=== PATIENT | male | born 1980 | race African-American/Black ===

== ENCOUNTER 2017-09-16 10:54 | Emergency (ER) | payer OTHER ==
[~2017-09-16] VITALS: Ht 177.8 cm; Wt 74.8 kg
[~2017-09-16 10:54] MED LIST: ADVAIR 100-501 EACH INH; ADVAIR 250-501 EACH INH; ALBUTEROL INHAL17 GM IH; CLARITIN10 M2 PO; COMBIVENT INH; COMBIVENT RESPIM4 GM IH; FLONASE 0.05%50 MCG NASAL; KEFLEX500 MG PO; NORCO 5-325 TA1 EACH PO; PREDNISONE 20 M20 M1 PO; VENTOLIN HFA INH8 GM IH
[2017-09-16] MEDS ORDERED: ALBUTEROL2.5 MG/31 INH (11:20)
[2017-09-16] MEDS ORDERED: MEDROLDOSEPACK PO (11:20)
[2017-09-16] MEDS ORDERED: VENTOLIN HFA 1818 GM INH (11:20)
[2017-09-16 11:55] VITALS: BP 118/60
[2018-01-20] MEDS ORDERED: PROVENTIL HFA6.7 G1 INH (22:07)
[2018-01-20] MEDS ORDERED: PREDNISONE50 MG PO (22:07)
[2018-03-29] MEDS ORDERED: VENTOLIN HFA 1818 GM INH (20:55)
[2018-03-29] MEDS ORDERED: ALLEGRA-D 12 H1 EAC1 PO (21:04)
[2018-03-29] MEDS ORDERED: PREDNISONE 20 M20 MG PO (21:04)
[2018-03-29] MEDS ORDERED: COMBIVENT RESPIM4 GM INH (21:04)
== END 2017-09-16 11:55 | disposition home or self-care (01) ==
LOC: ER 10:54
DX: J45.901 Unspecified asthma with (acute) exacerbation (principal); Z87.891 Personal history of nicotine dependence

== ENCOUNTER 2017-10-22 17:03 | Inpatient (IN) | payer OTHER ==
[2017-10-22] VITALS (13 sets, daily range): BP systolic 124–146; BP diastolic 65–91
[~2017-10-22] VITALS: Ht 177.8 cm; Wt 70.8 kg
--- NOTE | ~2017-10-22 | HC ---
[facility] [place] [address] CONSULTATION Name: SILVIA MATTHEW JR Room #: 464-P ADM IN M.R.#: [id number] Admission: 10/22/17 Attend Phys: Lopez Lawson MD Discharge: Date of : 82 Report #: [id number] THIS REPORT FOR: //name// CC: FAM physician/PCP Lopez Lawson PULMONARY CONSULTATION PRIMARY PHYSICIAN: Dr. Char Linda. REFERRAL PHYSICIAN: Lopez Lawson MD REASON FOR REFERRAL: Exacerbation of asthma. HISTORY OF PRESENT ILLNESS: The patient is a 37-year-old -[place] male who presents to the Emergency Room with respiratory distress. A pulmonary consultation was requested. The patient states he has been diagnosed with asthma most of his life. He uses albuterol mostly. About a month ago, he picked up smoking cigarettes. He noticed that ever since then he has been progressively short of breath. Recently, he also ran out of his inhalers. He does not see his primary care on a regular basis. His dyspnea started about 2-3 days ago and has been progressively worse. In the ER, the patient was found to be in severe respiratory distress. He was given steroids, bronchodilators along with magnesium IV. He was then placed on BiPAP. Currently, he feels better. He does get short of breath off the BiPAP. Otherwise, he denies any febrile illness or throat, productive cough, night sweats or chills. PAST MEDICAL HISTORY: Notable for asthma, lifelong, seasonal allergies. ALLERGIES: None to medications. HE IS ALLERGIC TO CATS, GRASS, POLLEN. HOME MEDICATIONS: Include nebulized albuterol. He was given Medrol Dosepak. He was also given Advair, Combivent scripts in the ER. FAMILY HISTORY: Noncontributory. SOCIAL HISTORY: Recently picked up smoking about a month ago. Denies any recreational drug use or other illicit drug use. Denies any alcohol use. [facility] [address] [place] [address] CONSULTATION Name: SILVIA MATTHEW Room #: 464-P [facility] IN [facility].#: [id number] Admission: 10/22/17 Attend Phys: Lopez Lawson MD Discharge: Date of : 82 Report #: [id number] REVIEW OF SYSTEMS: As mentioned above, otherwise 10-point system review negative. PHYSICAL EXAMINATION: GENERAL: He is awake, alert, in mild respiratory distress. VITAL SIGNS: Temperature is 98 degrees Fahrenheit, pulse is 110, respiratory rate is 20, blood pressure 120/80 mmHg, saturation 100%. HEENT: Normocephalic, atraumatic. NECK: Supple, without lymphadenopathy or thyromegaly. CHEST: Breath sounds are decreased bilaterally with moderate expiratory wheezes. CARDIOVASCULAR: Normal S1, S2. There are no murmurs or gallop. There is no JVD. There is no carotid bruit. Pulses are 2+/4+ bilaterally. ABDOMEN: Soft, nontender, no organomegaly or masses felt. GENITOURINARY: Deferred. RECTAL: Deferred. EXTREMITIES: There is no edema, cyanosis or clubbing. LABORATORY DATA: Chest x-ray is clear. CT chest was reviewed, it shows an ill-defined opacity seen in the right upper lobe along with superior basal segment of the left lower lobe. Influenza A and B swab is negative. Electrolytes are normal except for creatinine of 1.2. CBC is normal, eosinophil count is mildly elevated at 3.6%. Arterial blood gas on admission revealed pH 7.35, pCO2 of 50, pO2 72 on 4 liters of O2. IMPRESSION: 1. Exacerbation of asthma, severe. 2. Acute hypercapnic hypoxic respiratory failure due to above. 3. Tobacco abuse. 4. Acute kidney injury. 5. Seasonal allergies. RECOMMENDATION: Agree with current treatment plans including corticosteroids, bronchodilators, noninvasive positive pressure ventilation. I strongly recommend the patient regarding smoking cessation. Once stable, the patient should be on maintenance asthma medication such as inhaled corticosteroids and bronchodilators. He should also be treated for his seasonal allergies with an antihistamine or inhaled nasal steroid spray. Also, encouraged medical compliance treatment of his asthma as complications of [address] [address] CONSULTATION Name: SILVIA MATTHEW Room #: 464-P [facility] IN M.R.#: [id number] Admission: 10/22/17 Attend Phys: Lopez Lawson MD Discharge: Date of : 82 Report #: [id number] untreated asthma can be severe including . The patient voices understanding. <ELECTRONICALLY SIGNED> By: Mauricio Novoa MD 10/24/17 1214 [id number] Mauricio Novoa MD /nt
[~2017-10-22 17:03] MED LIST changes: +ALBUTEROL2.5 MG/31 INH; +MEDROLDOSEPACK PO; +VENTOLIN HFA 1818 GM INH
[2017-10-22 17:32] LABS: BE(vivo) 1.1 mmol/L (-2 to +3); HCO3 27.6 mmol/L (22.0-26.0); PCO2 50.5 mmHg (35.0-45.0); PO2 72.9 mmHg (80.0-100.0); pH 7.356 (7.360-7.450); sO2 93.9 % (92.0-98.0)
[2017-10-22 17:34] LABS: ABSOLUTE NEUTROPHILS 4.2 thou/uL (1.4-8.2); BASOPHILS 0.9 % (0.0-2.0); EOSINOPHILS 3.6 % (0.0-3.0); HEMATOCRIT 48.6 % (42.0-52.0); HEMOGLOBIN 16.2 gm/dL (14.0-18.0); LYMPHOCYTES 29.5 % (24.0-44.0); MCH 29.3 pg (26.0-34.0); MCHC 33.4 g/dL (28.0-37.0); MCV 87.6 fL (80.0-100.0); MONOCYTES 10.2 % (1.0-8.0); PLATELET COUNT 248 thou/uL (150-400); POLYS 55.8 % (36.0-66.0); RBC 5.55 mil/uL (4.50-6.00); RDW 13.6 % (10.5-14.5); WBC 7.5 thou/uL (4.0-11.0)
[2017-10-22 17:42] LABS: ANION GAP 8 mmol/L (7-16); BUN 18 mg/dL (7-18); CALCIUM 9.7 mg/dL (8.5-10.1); CHLORIDE 104 mmol/L (98-107); CO2 31 mmol/L (21-32); CREATININE 1.2 mg/dL (0.7-1.3); GLUCOSE 92 mg/dL (74-106); POTASSIUM 3.6 mmol/L (3.5-5.1); SODIUM 143 mmol/L (136-145)
[2017-10-22 17:51] LABS: MAGNESIUM 1.8 mg/dL (1.8-2.4); TROPONIN-I < 0.04 ng/mL (<0.06)
[2017-10-22] MEDS ORDERED: PROAIR HFA8.5 GM (21:09)
[2017-10-22] MEDS ORDERED: MEDROL4 M1 PO (21:11)
[2017-10-22] MEDS ORDERED: ALBUTEROL2.5 MG/31 INH (21:12)
[2017-10-23] VITALS (55 sets, daily range): BP systolic 97–173; BP diastolic 66–104
[2017-10-23 05:23] LABS: HEMATOCRIT 45.1 % (42.0-52.0); HEMOGLOBIN 14.9 gm/dL (14.0-18.0); MCH 29.1 pg (26.0-34.0); MCHC 32.9 g/dL (28.0-37.0); MCV 88.3 fL (80.0-100.0); RBC 5.11 mil/uL (4.50-6.00); RDW 13.9 % (10.5-14.5); WBC 5.6 thou/uL (4.0-11.0)
[2017-10-23 05:34] LABS: CALCIUM 9.4 mg/dL (8.5-10.1); CREATININE 1.2 mg/dL (0.7-1.3); MAGNESIUM 1.9 mg/dL (1.8-2.4)
[2017-10-23 05:38] LABS: POTASSIUM 4.9 mmol/L (3.5-5.1)
[2017-10-23 12:18] LABS: BE(vivo) 2.1 mmol/L (-2 to +3); HCO3 26.9 mmol/L (22.0-26.0); PCO2 42.5 mmHg (35.0-45.0); PO2 140.3 mmHg (80.0-100.0); pH 7.419 (7.360-7.450); sO2 98.8 % (92.0-98.0)
[2017-10-24] VITALS (13 sets, daily range): BP systolic 104–145; BP diastolic 65–83
[2017-10-24 05:19] LABS: CALCIUM 9.3 mg/dL (8.5-10.1); POTASSIUM 4.8 mmol/L (3.5-5.1)
[2017-10-24 05:22] LABS: HEMATOCRIT 44.4 % (42.0-52.0); HEMOGLOBIN 14.7 gm/dL (14.0-18.0); MCH 29.1 pg (26.0-34.0); MCV 88.1 fL (80.0-100.0); RBC 5.04 mil/uL (4.50-6.00); RDW 13.8 % (10.5-14.5); WBC 13.9 thou/uL (4.0-11.0)
[2017-10-25 04:48] VITALS: BP 124/80
[2017-10-25 05:29] LABS: HEMATOCRIT 41.6 % (42.0-52.0); HEMOGLOBIN 13.5 gm/dL (14.0-18.0); MCH 28.8 pg (26.0-34.0); MCHC 32.4 g/dL (28.0-37.0); RBC 4.68 mil/uL (4.50-6.00); RDW 13.8 % (10.5-14.5); WBC 16.3 thou/uL (4.0-11.0)
[2017-10-25 05:42] LABS: CALCIUM 9.1 mg/dL (8.5-10.1); MAGNESIUM 2.1 mg/dL (1.8-2.4)
[2017-10-25 05:44] LABS: POTASSIUM 4.6 mmol/L (3.5-5.1)
[2017-10-25 07:12] VITALS: BP 116/76
[2017-10-25 15:41] VITALS: BP 133/82
[2017-10-25 19:10] VITALS: BP 128/84
[2017-10-26 03:51] VITALS: BP 125/74
[2017-10-26 05:26] LABS: HEMATOCRIT 41.6 % (42.0-52.0); HEMOGLOBIN 13.5 gm/dL (14.0-18.0); MCH 28.9 pg (26.0-34.0); MCHC 32.5 g/dL (28.0-37.0); MCV 88.8 fL (80.0-100.0); RBC 4.68 mil/uL (4.50-6.00); RDW 13.8 % (10.5-14.5); WBC 14.1 thou/uL (4.0-11.0)
[2017-10-26 05:40] LABS: CALCIUM 8.8 mg/dL (8.5-10.1); CREATININE 1.1 mg/dL (0.7-1.3); MAGNESIUM 1.9 mg/dL (1.8-2.4); POTASSIUM 4.1 mmol/L (3.5-5.1)
[2017-10-26 07:50] VITALS: BP 124/82
[2017-10-26] MEDS ORDERED: DUONEB 2.5-0.5 M3 ML INH (10:41)
[2017-10-26] MEDS ORDERED: CIPRO500 MG PO (10:41)
[2017-10-26] MEDS ORDERED: SINGULAIR 10 MG10 M1 PO (10:41)
[2017-10-26] MEDS ORDERED: NEBULIZER (10:41)
[2017-10-26] MEDS ORDERED: MUCINEX600 MG PO (10:41)
[2017-10-26] MEDS ORDERED: PREDNISONE 10 M10 MG PO (10:46)
[2017-10-26 10:52] VITALS: BP 124/82
[2017-10-26 11:12] VITALS: BP 124/82
== END 2017-10-26 13:30 | disposition home or self-care (01) | DRG 871 ==
LOC: ER 17:03 → ICU 18:32 → EROBS 18:32 → ICU 20:45 → 4W 10-24 11:37
PROVIDERS: Internal Medicine; Internal Medicine Pulmonary Disease; Nurse Practitioner Family
PROC: 5A09457 Assistance with Respiratory Ventilation, 24-96 Consecutive Hours, Continuous Positive Airway Pressure (ICD-10-PCS; principal; 2017-10-22)
DX: A41.9 Sepsis, unspecified organism (principal); J18.9 Pneumonia, unspecified organism; J96.02 Acute respiratory failure with hypercapnia; J96.01 Acute respiratory failure with hypoxia; N17.9 Acute kidney failure, unspecified; J45.51 Severe persistent asthma with (acute) exacerbation; J30.2 Other seasonal allergic rhinitis; F17.210 Nicotine dependence, cigarettes, uncomplicated; Z79.899 Other long term (current) drug therapy; Z91.048 Other nonmedicinal substance allergy status; Z71.6 Tobacco abuse counseling
CPT/HCPCS: 10045; 10203

== ENCOUNTER 2018-02-22 21:18 | Emergency (ER) | payer OTHER ==
[~2018-02-22] VITALS: Ht 177.8 cm; Wt 74.8 kg
[~2018-02-22 21:18] MED LIST changes: +CIPRO500 MG PO; +DUONEB 2.5-0.5 M3 ML INH; +MEDROL4 M1 PO; +MUCINEX600 MG PO; +NEBULIZER; +PREDNISONE 10 M10 MG PO; +PREDNISONE50 MG PO; +PROAIR HFA8.5 GM; +PROVENTIL HFA6.7 G1 INH; +SINGULAIR 10 MG10 M1 PO
[2018-02-22] MEDS ORDERED: VENTOLIN HFA 1818 GM INH (21:50)
[2018-02-22] MEDS ORDERED: PREDNISONE 20 M20 MG PO (21:50)
== END 2018-02-22 22:15 | disposition home or self-care (01) ==
LOC: ER 21:18
DX: J45.901 Unspecified asthma with (acute) exacerbation (principal); B36.0 Pityriasis versicolor; L21.9 Seborrheic dermatitis, unspecified; Z87.891 Personal history of nicotine dependence; Z91.048 Other nonmedicinal substance allergy status

== ENCOUNTER 2018-06-07 21:08 | Emergency (ER) | payer OTHER ==
[~2018-06-07] VITALS: Ht 175.3 cm; Wt 74.8 kg
[~2018-06-07 21:08] MED LIST changes: +ALLEGRA-D 12 H1 EAC1 PO; +COMBIVENT RESPIM4 GM INH; +PREDNISONE 20 M20 MG PO
[2018-06-07] MEDS ORDERED: PREDNISONE 20 M20 MG PO (22:39)
[2018-06-07] MEDS ORDERED: FLOVENT HFA 4444 MCG INH (22:39)
[2018-06-07] MEDS ORDERED: VENTOLIN HFA 1818 GM INH (22:39)
[2018-06-07] MEDS ORDERED: AZITHROMYCIN 2250 MG PO (22:39)
[2018-06-07 22:52] VITALS: BP 107/57
== END 2018-06-07 22:53 | disposition home or self-care (01) ==
LOC: ER 21:08
DX: J20.9 Acute bronchitis, unspecified (principal); J45.909 Unspecified asthma, uncomplicated; Z87.891 Personal history of nicotine dependence; Z91.048 Other nonmedicinal substance allergy status

== ENCOUNTER 2018-06-09 08:17 | Emergency (ER) | payer OTHER ==
[~2018-06-09] VITALS: Ht 177.8 cm; Wt 74.8 kg
[~2018-06-09 08:17] MED LIST changes: +AZITHROMYCIN 2250 MG PO; +FLOVENT HFA 4444 MCG INH
[2018-06-09 09:03] LABS: HCO3 22.6 mmol/L (22.0-26.0); PCO2 VENOUS 34.4 mmHg (41.0-51.0); PO2 VENOUS 104.8 mmHg (35.0-45.0)
[2018-06-09 09:05] LABS: ABSOLUTE NEUTROPHILS 5.2 thou/uL (1.4-8.2); BASOPHILS 0.5 % (0.0-2.0); EOSINOPHILS 0.2 % (0.0-3.0); HEMATOCRIT 42.8 % (42.0-52.0); LYMPHOCYTES 19.6 % (24.0-44.0); MCH 28.5 pg (26.0-34.0); MCHC 32.7 g/dL (28.0-37.0); MONOCYTES 7.2 % (1.0-8.0); PLATELET COUNT 216 thou/uL (150-400); POLYS 72.5 % (36.0-66.0); RBC 4.92 mil/uL (4.50-6.00); RDW 13.7 % (10.5-14.5); WBC 7.2 thou/uL (4.0-11.0)
[2018-06-09 09:12] LABS: CREATININE 1.1 mg/dL (0.7-1.3); POTASSIUM 3.9 mmol/L (3.5-5.1)
[2018-06-09] MEDS ORDERED: ALBUTEROL2.5 MG/31 INH (10:53)
[2018-06-09 11:03] VITALS: BP 132/72
== END 2018-06-09 11:04 ==
LOC: ER 08:17
PROVIDERS: Student in an Organized Health Care Education/Training Program
DX: J45.901 Unspecified asthma with (acute) exacerbation (principal); Z87.891 Personal history of nicotine dependence; Z91.048 Other nonmedicinal substance allergy status

== ENCOUNTER 2018-09-13 19:38 | Emergency (ER) | payer OTHER ==
[~2018-09-13] VITALS: Ht 177.8 cm; Wt 74.8 kg
[2018-09-13] MEDS ORDERED: NAPROSYN500 MG PO (20:21)
[2018-09-13 20:59] VITALS: BP 138/91
== END 2018-09-13 20:59 | disposition home or self-care (01) ==
LOC: ER 19:38
DX: J02.9 Acute pharyngitis, unspecified (principal); J45.909 Unspecified asthma, uncomplicated; Z87.891 Personal history of nicotine dependence; Z91.09 Other allergy status, other than to drugs and biological substances

== ENCOUNTER 2021-04-02 18:56 | Emergency (ER) | payer OTHER ==
[~2021-04-02] VITALS: Ht 177.8 cm; Wt 74.8 kg
[~2021-04-02 18:56] MED LIST changes: +NAPROSYN500 MG PO
[2021-04-02] MEDS ORDERED: IBU600 MG PO (21:23)
[2021-04-02 21:46] VITALS: BP 122/83
== END 2021-04-02 21:59 | disposition home or self-care (01) ==
LOC: ER 18:56
DX: S62.92XA Unspecified fracture of left hand, initial encounter for closed fracture (principal); F32.9 Major depressive disorder, single episode, unspecified; J45.909 Unspecified asthma, uncomplicated; F41.9 Anxiety disorder, unspecified; Z87.891 Personal history of nicotine dependence; Z91.02 Food additives allergy status; Z91.038 Other insect allergy status; W19.XXXA Unspecified fall, initial encounter; Y93.89 Activity, other specified; Y92.89 Other specified places as the place of occurrence of the external cause; Y99.8 Other external cause status